=== PATIENT | female | born 1945 | race Hispanic/Latino ===

== ENCOUNTER 2017-08-27 08:20 | Outpatient (CLI) | payer MEDICARE ==
--- NOTE | 2017-08-28 08:23 | Nuclear Medicine Report ---
NUCLEAR MEDICINE PARATHYROID SCAN: 08/27/17 CLINICAL: Hyperparathyroidism. TECHNIQUE: 20.0 mCi of technetium 99m labeled Sestamibi was injected intravenously. Immediate and 3 hour images were obtained. FINDINGS: The initial scintigraphic images of the thyroid bed demonstrate normal uptake of the radiotracer in the thyroid with the right lobe larger than the left. Normal salivary and mediastinal activity is identified. The delayed images demonstrate persistent activity in the thyroid and salivary glands. No suspicious activity. IMPRESSION: Negative scan for parathyroid adenoma.
== END 2017-08-27 08:21 | disposition home or self-care (01) ==
LOC: NM 08:20
PROVIDERS: ATTEND Internal Medicine Nephrology
DX: D35.1 Benign neoplasm of parathyroid gland (principal); E83.52 Hypercalcemia
CPT/HCPCS: 78070; A9500